=== PATIENT | male | born 1965 ===

== ENCOUNTER → 2017-03-11 | Outpatient (CLI) | payer OTHER ==
[2017-03-12 10:56] LABS: Specimen Source PROBE
[2017-03-13 03:24] LABS: Source PROBE
== END ==
LOC: LAB SHORT 10:55
PROVIDERS: Emergency Medicine
DX: S31.20XA Unspecified open wound of penis, initial encounter (principal); S30.822A Blister (nonthermal) of penis, initial encounter; N50.9 Disorder of male genital organs, unspecified
CPT/HCPCS: 87491; 87591